=== PATIENT | female | born 1955 | race Hispanic/Latino ===

== ENCOUNTER 2017-09-08 21:34 | Emergency (ER) | payer OTHER ==
[~2017-09-08] VITALS: Ht 157.5 cm; Wt 72.6 kg
== END 2017-09-08 23:02 | disposition home or self-care (01) ==
LOC: ED 21:34 → EDBD 21:35 → ED 23:02
DX: R42 Dizziness and giddiness (principal); I10 Essential (primary) hypertension; E11.9 Type 2 diabetes mellitus without complications; E78.00 Pure hypercholesterolemia, unspecified; Z98.51 Tubal ligation status
CPT/HCPCS: 80053; 81001; 84484; 85025; 99284

== ENCOUNTER 2021-06-07 23:14 | Emergency (ER) | payer MEDICARE, OTHER ==
[~2021-06-07] VITALS: Ht 162.6 cm; Wt 53.5 kg
--- OUTSIDE RECORDS SUMMARY | 2021-06-07 23:22 | XMS ---
PreManage Notification: OLIVA MAN Security Bmet Events No recent Security Events currently on file CRITERIA MET - [facility] - 2 Visits in 30 Days [facility]: [phone] Swathi has no Care Guidelines for this patient. [facility] VISIT COUNT (12 MO.) [address] TOTAL 3 NOTE: Visits indicate total known visits. ED/UCC VISIT TRACKING (12 MO.) 06/07/2021 23:15 [facility] [place] TYPE: Emergency COMPLAINT: - DIFFICULTY BREATHING 06/04/2021 15:45 [facility] [place] TYPE: Emergency DIAGNOSES: - COVID-19 - FEVER AND DEHYDRATION 04/27/2021 00:53 [facility] [place] TYPE: Emergency DIAGNOSES: - Anemia, unspecified - Hypoxemia - COPD DIFFICULTY BREATHING INPATIENT VISIT TRACKING (12 MO.) No inpatient visits to display in this time frame [email or web address]
[2021-06-07] MEDS ORDERED: ALBUTEROL2.5 MG/3 M INH (23:33)
[2021-06-07] MEDS ORDERED: ONDANSETRON ODT8 MG PO (23:33)
[2021-06-07] MEDS ORDERED: METFORMIN HCL500 MG PO (23:33)
[2021-06-07] MEDS ORDERED: SIMVASTATIN20 MG PO (23:37)
[2021-06-07] MEDS ORDERED: LEVOTHYROXINE112 MCG PO (23:37)
[2021-06-07] MEDS ORDERED: OMEPRAZOLE40 MG (23:38)
[2021-06-07] MEDS ORDERED: LANTUS SOL100 UNIT/1 SUB-Q (23:38)
[2021-06-07] MEDS ORDERED: GABAPENTIN300 MG PO (23:38)
[2021-06-07] MEDS ORDERED: ZOFRAN4 MG PO (23:47)
[2021-06-07] MEDS ORDERED: HYDROCODON-ACE1 EA10 PO (23:47)
== END 2021-06-08 00:02 | disposition home or self-care (01) ==
LOC: ED 23:14
DX: U07.1 COVID-19 (principal); I10 Essential (primary) hypertension; E11.9 Type 2 diabetes mellitus without complications; E78.00 Pure hypercholesterolemia, unspecified; Z79.899 Other long term (current) drug therapy; Z79.4 Long term (current) use of insulin
CPT/HCPCS: 99284